=== PATIENT | male | born 1970 | race Caucasian/White ===

== ENCOUNTER → 2018-03-18 13:58 | Outpatient (CLI) | payer OTHER, MEDICAID, SELFPAY | PROVIDERS: PCP Family Medicine; Visit Provider Internal Medicine | DX: E11.621 Type 2 diabetes mellitus with foot ulcer (principal); L97.521 Non-pressure chronic ulcer of other part of left foot limited to breakdown of skin; L84 Corns and callosities; M20.12 Hallux valgus (acquired), left foot; M14.671 Charcot's joint, right ankle and foot | CPT/HCPCS: 99212 ==

== ENCOUNTER → 2018-03-29 14:05 | Outpatient (CLI) | payer OTHER, MEDICAID, SELFPAY ==
[2018-03-29 17:13] LABS: Creatinine Urine Random 164.9 mg/dL
[2018-03-29 20:06] LABS: BUN Creatinine Ratio 22.5 (6-22); Blood Urea Nitrogen 36 mg/dL (9-20); Calcium 9.4 mg/dL (8.4-10.2); Carbon Dioxide 25 mmol/L (22-32); Chloride 103 mmol/L (98-107); Glucose 137 mg/dL (70-100); HEMOLYSIS < 15 (0-50); Potassium 4.9 mmol/L (3.4-5.1); Sodium 142 mmol/L (137-145)
[2018-03-29 20:41] LABS: Microalbumi Creatinin Ratio Ur 435.4 ug/mg CR (<30); Microalbumin Urine Random 71.8 mg/dL (0-1.6)
[2018-03-31 13:54] LABS: Parathyroid Hormone Int 90 pg/mL (14-64)
== END ==
PROVIDERS: PCP Family Medicine; Visit Provider Student in an Organized Health Care Education/Training Program
DX: N05.9 Unspecified nephritic syndrome with unspecified morphologic changes (principal); N25.81 Secondary hyperparathyroidism of renal origin; R80.9 Proteinuria, unspecified
CPT/HCPCS: 36415; 80048; 82043; 82570; 83970

== ENCOUNTER 2018-05-23 12:15 | Emergency (ER) | payer OTHER, MEDICAID, SELFPAY ==
[2018-05-23 12:34] VITALS: BP 163/84; PULSE 93; RESP 20; TEMP 36.8; O2SAT 100
--- NOTE | 2018-05-23 12:54 | ED.DENTAL ---
HPI - Dental/Oral <RITCHIE Solitario - Last Filed: 05/23/18 22:26> General Chief complaint: Dental/Oral Stated complaint: EAR PRESSURE IN RIGHT EAR Time Seen by Provider: 05/23/18 12:57 Source: patient Mode of arrival: ambulatory Limitations: no limitations History of Present Illness HPI Narrative: 47-year-old male here for complaint of having a sore throat and pressure to his right ear since yesterday. He denies any fevers or chills. He does state that he had some sinus congestion yesterday. Positive p.o. intake. He does report that he has tympanic tubes he denies any drainage from the right ear. He states he had some drainage from the left ear few days ago but he went swimming and he thinks it was water. He denies any other complaints or concerns at this time. Related Data Previous Rx's Medication Instructions Recorded [place] [facility] SEE INSTRUCTIONS #100 02/05/17 hydrochlorothiazide 12.5 mg OR Q DAY #30 tab 08/21/17 Glucose: Home Monitor / TID #1 09/03/17 Glucose: Test Strips 0 str TID #100 str 09/03/17 Lancets 0 dev TID #100 09/03/17 hydroxyzine HCl 50 mg PO Q6HP PRN #40 tab 01/26/18 Diabetic Shoes / #1 01/27/18 carvedilol 3.125 mg tablet 3.125 mg PO BID #60 tab 03/05/18 insulin glargine [Lantus Solostar 45 u SQ Q DAY #7 pac 03/11/18 U-100 Insulin] insulin lispro (U-100) 100 unit/mL 12 unit SUBCUT AC #1 box 05/06/18 subcutaneous pen Allergies Allergy/AdvReac Type Severity Reaction Status Date / Time vancomycin [VANCOMYCIN] Allergy Severe MARY JO Unverified 02/03/18 12:16 SYNDROME ibuprofen AdvReac Verified 05/23/18 12:38 Review of Systems <RITCHIE Solitario - Last Filed: 05/23/18 22:26> Constitutional Denies chills, Denies fever(s), Denies lethargy and Denies weakness Eyes Denies change in vision, Denies eye discharge, Denies irritation and Denies loss of vision ENT Ears, Nose, Mouth, and Throat: Reports otalgia and Reports sore throat Cardiovascular Denies chest pain, Denies irregular heart rhythm, Denies lightheadedness, Denies palpitations, Denies dyspnea, Denies dyspnea on exertion and Denies orthopnea Respiratory Denies cough, Denies dyspnea, Denies dyspnea on exertion and Denies wheezing Gastrointestinal Gastrointestinal: Denies abdominal pain, Denies change in bowel habits, Denies diarrhea, Denies nausea and Denies vomiting Genitourinary Denies hematuria, Denies flank pain, Denies urinary incontinence and Denies urinary urgency Musculoskeletal Denies back pain, Denies muscle weakness, Denies numbness and Denies tingling Integumentary/Breasts Denies pruritus, Denies erythema, Denies rash and Denies wounds Neurologic Denies confusion, Denies loss of vision, Denies numbness, Denies tingling and Denies weakness Psychiatric Denies anxiety, Denies confusion, Denies depression, Denies homicidal ideation and Denies suicidal ideation Endocrine Denies palpitations Hematologic/Lymphatic Denies easy bruising Allergic/Immunologic Denies wheezing Exam <RITCHIE Solitario - Last Filed: 05/23/18 22:26> Initial Vital Signs Initial Vital Signs: Vital Signs Temperature 98.3 F 05/23/18 12:34 Pulse Rate 93 H 05/23/18 12:34 Respiratory Rate 20 05/23/18 12:34 Blood Pressure 163/84 H 05/23/18 12:34 Pulse Oximetry 100 05/23/18 12:34 Const General: cooperative and well developed Nutritional Appearance: well nourished Orientation: alert, awake, oriented x3 and not confused [facility] Head: normocephalic and atraumatic Ears: external ears normal, TM's normal bilaterally and other (Tympanic tubes in place bilaterally) Nose: external nose normal and No nasal discharge Face and sinus: sinuses nontender, face symmetric, no sinus tenderness and No dry mucous membranes Mouth: oral mucosae normal and moist mucous membranes Teeth and gingiva: dentition normal Throat: tonsils normal and uvula midline Eyes Conjunctivae: conjunctivae normal Sclera: sclerae normal Pupils: PERRL EOM: EOM intact bilaterally Neck Neck: normal visual inspection, trachea midline, No lymphadenopathy, No midline deformity and No JVD Lymphatic: No lymphedema Resp Effort & Inspection: normal respiratory effort, able to speak in complete sentences, no respiratory distress and no use of accessory muscles Auscultation: clear to auscultation bilaterally, no rales, no rhonchi and no wheezes Cardio Rate: regular rate Rhythm: regular rhythm Heart Sounds: no click, no gallops, no murmurs and no rubs Pulses: normal peripheral pulses Skin General: no rashes or lesions noted, No jaundice and No petechiae Neuro General: alert, oriented x3, gait normal and no focal motor deficits Speech: speech normal <Ricky Hatch DO - Last Filed: 05/24/18 07:11> Initial Vital Signs Initial Vital Signs: Vital Signs Temperature 98.3 F 05/23/18 12:34 Pulse Rate 93 H 05/23/18 12:34 Respiratory Rate 20 05/23/18 12:34 Blood Pressure 163/84 H 05/23/18 12:34 Pulse Oximetry 100 05/23/18 12:34 Course <RITCHIE Solitario - Last Filed: 05/23/18 22:26> Orders Ordered: ED Orders 05/23/18 13:14 Strep Grp A by PCR Rapid Stat Vital Signs - 8 hr 05/23/18 12:34 Temperature 98.3 F Pulse Rate 93 H Respiratory Rate 20 Blood Pressure 163/84 H Pulse Oximetry 100 <DO Melody Vickers Last Filed: 05/24/18 07:11> Orders Ordered: ED Orders 05/23/18 13:14 Strep Grp A by PCR Rapid Stat Vital Signs - 8 hr 05/23/18 12:34 Temperature 98.3 F Pulse Rate 93 H Respiratory Rate 20 Blood Pressure 163/84 H Pulse Oximetry 100 MDM - Dental/Oral <RITCHIE Solitario - Last Filed: 05/23/18 22:26> [facility] Narrative Medical decision making narrative: Bilateral ear exam was unremarkable. Rapid strep test was obtained and was negative. Signs and symptoms presents as a viral illness. Pnsf-okt-[id number] Tylenol or Motrin as needed for any discomfort. Plenty of fluids and rest. Follow up with primary care provider later this week. For any worsening symptoms return to the emergency room. Discharge Plan Departure Patient Disposition: Home, Self-Care Clinical Impression: Acute viral pharyngitis Discharge Date/Time: 05/23/18 14:07 Interventions: ED Discharge Assessment Last Done: 05/23/18 14:07 Instructions: DI for Viral Pharyngitis Activity Restrictions/Additional Instructions: Bilateral ear exam was unremarkable. Rapid strep test was obtained and was negative. Signs and symptoms presents as a viral illness. Cshp-cyt-neolyru Tylenol or Motrin as needed for any discomfort. Plenty of fluids and rest. Follow up with primary care provider later this week. For any worsening symptoms return to the emergency room. Prescriptions: No Action [place] SEE INSTRUCTIONS Qty: 100 RF: 0 hydrochlorothiazide 12.5 MG tablet 12.5 mg OR Q DAY Qty: 30 RF: 5 Glucose: Home Monitor TID Qty: 1 RF: 3 Lancets TID Qty: 100 RF: 8 Glucose: Test Strips TID Qty: 100 RF: 6 hydroxyzine HCl 50 MG tablet 50 mg PO Q6HP PRNQty: 40 RF: 1 Diabetic Shoes Qty: 1 RF: 0 carvedilol [Coreg] 3.125 mg tablet 3.125 mg PO BID Qty: 60 RF: 5 insulin glargine [Lantus Solostar U-100 Insulin] 100 unit/mL (3 mL) insulin pen 45 u SQ Q DAY Qty: 7 RF: 0 insulin lispro [Humalog KwikPen Insulin] 100 unit/mL insulin pen 12 unit SUBCUT AC Qty: 1 RF: 2 Referrals: Markel Yoder MD [Primary Care Provider] - <Ricky Hatch DO - Last Filed: 05/24/18 07:11> Cosign ED Attending Gerardoature Attestation: I was available for consultation during this patient's emergency department encounter
== END 2018-05-23 14:07 | disposition home or self-care (01) ==
PROVIDERS: Emergency Provider Nurse Practitioner Family; PCP Family Medicine
DX: J02.8 Acute pharyngitis due to other specified organisms (principal)
CPT/HCPCS: 87880; 99282; 99283

== ENCOUNTER 2018-10-14 17:29 | Emergency (ER) | payer SELFPAY ==
[2018-10-14 17:34] VITALS: BP 134/78; PULSE 110; RESP 16; TEMP 37.2; O2SAT 100; BMI 36.3
--- NOTE | 2018-10-14 18:15 | ED.RECABL ---
HPI - Recheck/Abnormal Lab/Rx General Chief Complaint: Recheck/Abnormal Lab/Rx Stated Complaint: STATES SENT FOR ANTIBIOTICS Time Seen by Provider: 10/14/18 18:15 Source: patient Mode of arrival: ambulatory Limitations: no limitations History of Present Illness HPI narrative: Patient is a 48-year-old male who diabetic. Has had issues with ulcers in his right foot. Has have a history of osteomyelitis. Has had foot fusion in the past. He states that he does have feeling in his foot. He states that over the past several days he has noticed some black areas on the lateral aspect of his right foot. He states that there is always redness in this area and that has not changed. He has not noticed any drainage. Does report very minimal swelling over the area. No fevers. He contacted his primary doctor today who instructed him to come to the emergency department for antibiotics. Related Data Previous Rx's Medication Instructions Recorded [place] [facility] SEE INSTRUCTIONS #100 02/05/17 Glucose: Home Monitor / TID #1 09/03/17 Glucose: Test Strips 0 str TID #100 str 09/03/17 Lancets 0 dev TID #100 09/03/17 hydroxyzine HCl 50 mg PO Q6HP PRN #40 tab 01/26/18 Diabetic Shoes / #1 01/27/18 insulin glargine [Lantus Solostar 45 u SQ Q DAY #7 pac 03/11/18 U-100 Insulin] hydrochlorothiazide 12.5 mg tablet 12.5 mg PO Q DAY #30 tab 08/09/18 insulin lispro (U-100) 100 unit/mL 12 unit SUBCUT AC #1 box 08/16/18 subcutaneous pen carvedilol 3.125 mg tablet 3.125 mg PO BID #60 tab 09/13/18 sulfamethoxazole-trimethoprim 1 tab PO BID 14 Days #28 tab 10/14/18 [Bactrim DS] Allergies Allergy/AdvReac Type Severity Reaction Status Date / Time vancomycin [VANCOMYCIN] Allergy Severe MARY JO Verified 10/14/18 17:34 SYNDROME ibuprofen AdvReac Verified 10/14/18 17:34 Review of Systems Constitutional Denies fatigue and Denies fever(s) Cardiovascular Denies chest pain and Denies dyspnea Respiratory Denies dyspnea Gastrointestinal Gastrointestinal: Denies abdominal pain Musculoskeletal Denies myalgias and Denies arthralgias Integumentary/Breasts Comments: Black areas over the outside of the right foot Neurologic Comments: No changes in sensation to the right foot Endocrine Denies fatigue Hematologic/Lymphatic Denies easy bleeding and Denies easy bruising PFSH Medical History Diabetes (Acute) Surgical History H/O foot surgery (Acute) Social History Smoking Status: Never smoker Exam Initial Vital Signs Initial Vital Signs: Vital Signs Temperature 99.0 F 10/14/18 17:34 Pulse Rate 110 H 10/14/18 17:34 Respiratory Rate 16 10/14/18 17:34 Blood Pressure 134/78 10/14/18 17:34 Pulse Oximetry 100 10/14/18 17:34 Const General: cooperative, healthy appearing, comfortable, well developed, well groomed and No acute distress Orientation: alert, awake and oriented x3 HENMT Head: normal to inspection and normocephalic Resp Effort & Inspection: normal respiratory effort Cardio Pulses: dorsalis pedis present on the right Skin Other: Patient with a 2 cm area of black skin on the lateral aspect of the right foot along the 5th metatarsal. No drainage. No blisters. He does have an area of redness around this which the patient states is not new. Neuro Sensory Exam: no sensory deficits noted Extrem Other: Extremity exam unremarkable except for the skin changes of the right foot Psych Appearance: grossly normal and well kempt Course Orders Ordered: Discontinued Medications Trimethoprim/Sulfamethoxazole (Bactrim Ds) 1 tab PO NOW ONE Stop: 10/14/18 18:45 Last Admin: 10/14/18 19:12 Dose: 1 tab Vital Signs - 8 hr 10/14/18 17:34 10/14/18 19:21 Temperature 99.0 F Pulse Rate 110 H 97 H Respiratory Rate 16 16 Blood Pressure 134/78 141/85 H Pulse Oximetry 100 99 MDM - Recheck/Abnormal Lab/Rx Lab Data Point of Care Testing Glucose POC 85 MDM Narrative Medical decision making narrative: Patient is tachycardic but not septic appearing. He does have some black areas on the lateral aspect of his right foot but no drainage. The redness does not appear to be new. After discussion with the patient we will place him on Bactrim. He states that he has taken this medication in the past and it seem to have helped his other infections. A review of his studies here did not show any prior wound cultures. He states that his last infection was greater than 1 year ago. He was given a 1st dose here in the emergency department and then sent home with a prescription for this medicine. He is going to contact his primary care doctor tomorrow to see if he needs to follow up with him or with wound care. He was given return precautions. He expressed understanding and agreement with plan. Discharge Plan Departure Patient Disposition: Home Clinical Impression: Cellulitis Discharge Date/Time: 10/14/18 19:22 Interventions: ED Discharge Assessment Last Done: 10/14/18 19:21 Instructions: DI for Cellulitis -- Adult Activity Restrictions/Additional Instructions: I recommend that you call Dr. conley tomorrow for a follow-up. You were given your 1st dose of antibiotics here in the emergency department. Fill the prescription and start taking them as directed. Return to the emergency department for any new or worsening symptoms Prescriptions: New sulfamethoxazole-trimethoprim [Bactrim DS] 800-160 mg tablet 1 tab PO BID 14 Days Qty: 28 RF: 0 No Action [place] SEE INSTRUCTIONS Qty: 100 RF: 0 Glucose: Home Monitor TID Qty: 1 RF: 3 Lancets TID Qty: 100 RF: 8 Glucose: Test Strips TID Qty: 100 RF: 6 hydroxyzine HCl 50 MG tablet 50 mg PO Q6HP PRNQty: 40 RF: 1 Diabetic Shoes Qty: 1 RF: 0 insulin glargine [Lantus Solostar U-100 Insulin] 100 unit/mL (3 mL) insulin pen 45 u SQ Q DAY Qty: 7 RF: 0 hydrochlorothiazide 12.5 mg tablet 12.5 mg PO Q DAY Qty: 30 RF: 5 insulin lispro [Humalog KwikPen Insulin] 100 unit/mL insulin pen 12 unit SUBCUT AC Qty: 1 RF: 2 carvedilol [Coreg] 3.125 mg tablet 3.125 mg PO BID Qty: 60 RF: 5
[2018-10-14] MEDS: TRIMETH/SULFA 160/800 (DS) TABLET 1 TAB PO (19:12)
[2018-10-14 19:21] VITALS: BP 141/85; PULSE 97; RESP 16; O2SAT 99
== END 2018-10-14 19:22 | disposition home or self-care (01) ==
PROVIDERS: Emergency Provider Emergency Medicine; Family Provider Internal Medicine; PCP Internal Medicine
DX: L03.115 Cellulitis of right lower limb (principal)
CPT/HCPCS: 82962; 99282; 99283

== ENCOUNTER → 2018-11-08 13:24 | Outpatient (CLI) | payer OTHER, SELFPAY | PROVIDERS: Family Provider Internal Medicine; PCP Student in an Organized Health Care Education/Training Program; Visit Provider Family Medicine | DX: E11.621 Type 2 diabetes mellitus with foot ulcer (principal); E11.40 Type 2 diabetes mellitus with diabetic neuropathy, unspecified; L97.511 Non-pressure chronic ulcer of other part of right foot limited to breakdown of skin | CPT/HCPCS: 97597; 99213 ==

== ENCOUNTER → 2018-11-08 14:29 | Outpatient (CLI) | payer OTHER, SELFPAY ==
--- NOTE | 2018-11-08 | DI.RAD.S_ITS ---
PROCEDURE: XR FOOT RT MIN 3V INDICATIONS: LATERAL RIGHT FOOT EVAL FOR OSTEO TECHNIQUE: 3 views of the foot were acquired. COMPARISON: [facility], MR, FOOT W&WO CONTRAST, 05/29/2017, 15:32. [facility], CR, FOOT 3V RIGHT, 01/20/2017, 10:32. [facility], CR, FOOT 3V RIGHT, 01/02/2017, 15:15. FINDINGS: Bones: No fractures or dislocations. There is a finding of a mixed osteolytic and osteosclerotic change at the base of the third, fourth and fifth metatarsal bones and extending into the adjacent tarsal bones/cuboid. Stable appearing postsurgical changes over the calcaneus and base of the first metatarsal bone. Soft tissues: No tibiotalar joint effusion. Achilles tendon appears normal. IMPRESSION: Postsurgical changes posteriorly and medially. What appears to be active osteomyelitis can be seen laterally involving the proximal aspect of the third fourth and fifth metatarsal bones and the adjacent tarsal structures and cuboid. Dictated by: Preston Aguilar M.D. on 11/08/2018 at 15:24 Approved by: Preston Aguilar M.D. on 11/08/2018 at 15:26
[2018-11-08 15:05] LABS: Add Manual Diff / Slide Review NO; Basophils Absolute Auto 0 /uL (0-100); Basophils Percent Auto 0.9 % (0-2); Eosinophils Absolute Auto 300 /uL (0-450); Eosinophils Percent Auto 4.9 % (2-4); Hematocrit 37.5 % (41-53); Hemoglobin 12.7 g/dL (13.5-17.5); Lymphocytes Absolute Auto 1500 /uL (1100-4500); Lymphocytes Percent Auto 27.9 % (25-40); Mean Corpuscular HGB Conc 33.9 % (30-36); Mean Corpuscular Hemoglobin 29.5 PG (26-34); Mean Corpuscular Volume 86.9 fL (80-100); Monocytes Absolute Auto 400 /uL (0-900); Monocytes Percent Auto 6.5 % (3-14); Neutrophils Absolute Auto 3300 /uL (1500-7000); Neutrophils Percent Auto 59.8 % (50-75); Platelet Count 184 X10^3/uL (150-400); Red Blood Cell Count 4.31 X10^6/uL (4.5-5.9); Red Cell Distribution Width 12.9 % (11.6-14.8); White Blood Cell Count 5.4 X10^3/uL (4.5-11.0)
[2018-11-08 15:25] LABS: Hemoglobin A1C% w Est Avg Glu 11.9 % (4.0-6.0)
[2018-11-08 15:41] LABS: Erythrocyte Sedimentation Rate 47 MM/HR (0-15)
[2018-11-08 15:52] LABS: Alanine Aminotransferase 43 IU/L (21-72); Albumin 4.2 g/dL (3.5-5.0); Albumin Globulin Ratio 1.4 (1.0-2.8); Alkaline Phosphatase 85 U/L (38-126); Aspartate Aminotransferase 28 IU/L (17-59); BUN Creatinine Ratio 22.7 (6-22); Bilirubin Total 0.5 mg/dL (0.2-1.3); Blood Urea Nitrogen 34 mg/dL (9-20); Calcium 9.5 mg/dL (8.4-10.2); Carbon Dioxide 27 mmol/L (22-32); Chloride 104 mmol/L (98-107); Estimated Glomerular Filt Rate 50.4 mL/min (>60); Globulin 2.9 g/dL (1.7-4.1); Glucose 114 mg/dL (70-100); HEMOLYSIS < 15 (0-50); Potassium 4.9 mmol/L (3.4-5.1); Sodium 141 mmol/L (137-145); Total Protein 7.1 g/dL (6.3-8.2)
== END ==
PROVIDERS: Family Provider Internal Medicine; PCP Student in an Organized Health Care Education/Training Program; Visit Provider Podiatrist Primary Podiatric Medicine
DX: E11.621 Type 2 diabetes mellitus with foot ulcer (principal); L97.519 Non-pressure chronic ulcer of other part of right foot with unspecified severity; E11.69 Type 2 diabetes mellitus with other specified complication; M86.671 Other chronic osteomyelitis, right ankle and foot
CPT/HCPCS: 36415; 73630; 80053; 83036; 85025; 85651; 86140

== ENCOUNTER → 2018-11-15 13:25 | Outpatient (CLI) | payer OTHER, SELFPAY | PROVIDERS: Family Provider Internal Medicine; PCP Student in an Organized Health Care Education/Training Program; Visit Provider Podiatrist Primary Podiatric Medicine | DX: E11.621 Type 2 diabetes mellitus with foot ulcer (principal); L97.511 Non-pressure chronic ulcer of other part of right foot limited to breakdown of skin | CPT/HCPCS: 97597 ==

== ENCOUNTER → 2018-11-30 09:25 | Outpatient (CLI) | payer OTHER, SELFPAY | LOC: WC 09:26 | PROVIDERS: Family Provider Internal Medicine; PCP Student in an Organized Health Care Education/Training Program; Visit Provider Family Medicine | DX: E11.621 Type 2 diabetes mellitus with foot ulcer (principal); L97.511 Non-pressure chronic ulcer of other part of right foot limited to breakdown of skin; L84 Corns and callosities | CPT/HCPCS: 11042; 87070; 87077; 87147; 87186; 87205 ==

== ENCOUNTER → 2018-12-10 13:28 | Outpatient (CLI) | payer OTHER, SELFPAY | LOC: WC 13:30 | PROVIDERS: Family Provider Internal Medicine; PCP Student in an Organized Health Care Education/Training Program; Visit Provider Family Medicine | DX: E11.621 Type 2 diabetes mellitus with foot ulcer (principal); L97.512 Non-pressure chronic ulcer of other part of right foot with fat layer exposed; L08.9 Local infection of the skin and subcutaneous tissue, unspecified | CPT/HCPCS: 11042; 99213 ==

== ENCOUNTER → 2018-12-24 08:30 | Outpatient (CLI) | payer OTHER, SELFPAY | PROVIDERS: Family Provider Internal Medicine; PCP Student in an Organized Health Care Education/Training Program; Visit Provider Family Medicine | DX: E11.621 Type 2 diabetes mellitus with foot ulcer (principal); L97.511 Non-pressure chronic ulcer of other part of right foot limited to breakdown of skin | CPT/HCPCS: 11042 ==

== ENCOUNTER → 2020-02-08 09:58 | Outpatient (CLI) | payer OTHER, SELFPAY ==
[2020-02-09] LABS: COVID19 Sendout Not Detected (Not Detect)
== END ==
PROVIDERS: Family Provider Internal Medicine; PCP Internal Medicine; Visit Provider Registered Nurse
DX: R68.89 Other general symptoms and signs (principal)
CPT/HCPCS: 87635

== ENCOUNTER → 2020-03-07 16:41 | Outpatient (ROUT) | payer OTHER, SELFPAY | PROVIDERS: Family Provider Internal Medicine; PCP Internal Medicine; Visit Provider Internal Medicine | DX: L03.115 Cellulitis of right lower limb (principal) | CPT/HCPCS: 87070; 87075; 87077; 87185; 87186; 87205 ==

== ENCOUNTER → 2020-04-12 10:16 | Outpatient (CLI) | payer OTHER, SELFPAY ==
[2020-04-12 12:00] LABS: Alanine Aminotransferase 37 IU/L (<50); Albumin 4.2 g/dL (3.5-5.0); Albumin Globulin Ratio 1.4 (1.0-2.8); Alkaline Phosphatase 100 U/L (38-126); Aspartate Aminotransferase 34 IU/L (17-59); BUN Creatinine Ratio 21.8 (6-22); Bilirubin Total 0.6 mg/dL (0.2-1.3); Blood Urea Nitrogen 34 mg/dL (9-20); Calcium 9.5 mg/dL (8.4-10.2); Carbon Dioxide 26 mmol/L (22-32); Chloride 107 mmol/L (98-107); Cholesterol 214 mg/dL (140-199); Estimated Glomerular Filt Rate 47.9 mL/min (>60); Globulin 3.1 g/dL (1.7-4.1); Glucose 94 mg/dL (70-100); HDL Cholesterol 35 mg/dL (40-60); HEMOLYSIS < 15 (0-50); LDL Cholesterol Calculated 145 mg/dL (<100); Potassium 3.9 mmol/L (3.4-5.1); Sodium 141 mmol/L (137-145); Total Protein 7.3 g/dL (6.3-8.2); Triglycerides 169 mg/dL (35-150)
== END ==
PROVIDERS: Family Provider Internal Medicine; PCP Internal Medicine; Referring Provider Internal Medicine; Visit Provider Internal Medicine
DX: E11.8 Type 2 diabetes mellitus with unspecified complications (principal)
CPT/HCPCS: 36415; 80053; 80061; 83036

== ENCOUNTER → 2020-06-12 08:47 | Outpatient (CLI) | payer OTHER, SELFPAY | PROVIDERS: Family Provider Internal Medicine; PCP Internal Medicine; Referring Provider Internal Medicine; Visit Provider Family Medicine | DX: E11.621 Type 2 diabetes mellitus with foot ulcer (principal); L97.511 Non-pressure chronic ulcer of other part of right foot limited to breakdown of skin; A52.16 Charcot's arthropathy (tabetic); N18.3 Chronic kidney disease, stage 3 (moderate) | CPT/HCPCS: 11042; 99213; 99214 ==

== ENCOUNTER → 2020-06-21 11:59 | Outpatient (CLI) | payer OTHER, SELFPAY | LOC: WC 12:00 | PROVIDERS: Family Provider Internal Medicine; PCP Internal Medicine; Referring Provider Internal Medicine; Visit Provider Family Medicine | DX: E11.621 Type 2 diabetes mellitus with foot ulcer (principal); L97.511 Non-pressure chronic ulcer of other part of right foot limited to breakdown of skin; A52.16 Charcot's arthropathy (tabetic); N18.3 Chronic kidney disease, stage 3 (moderate) | CPT/HCPCS: 11042 ==

== ENCOUNTER → 2020-06-28 09:38 | Outpatient (CLI) | payer OTHER, SELFPAY ==
[2020-06-28 12:52] LABS: Add Manual Diff / Slide Review NO; Basophils Absolute Auto 100 /uL (0-100); Basophils Percent Auto 0.6 % (0-2); Eosinophils Absolute Auto 100 /uL (0-450); Eosinophils Percent Auto 1.3 % (2-4); Hematocrit 39.7 % (41-53); Hemoglobin 13.3 g/dL (13.5-17.5); Lymphocytes Absolute Auto 1100 /uL (1100-4500); Lymphocytes Percent Auto 12.6 % (25-40); Mean Corpuscular HGB Conc 33.6 % (30-36); Mean Corpuscular Volume 86.2 fL (80-100); Monocytes Absolute Auto 500 /uL (0-900); Monocytes Percent Auto 5.6 % (3-14); Neutrophils Absolute Auto 6900 /uL (1500-7000); Neutrophils Percent Auto 79.9 % (50-75); Platelet Count 204 X10^3/uL (150-400); Red Blood Cell Count 4.61 X10^6/uL (4.5-5.9); Red Cell Distribution Width 13.3 % (11.6-14.8); White Blood Cell Count 8.6 X10^3/uL (4.5-11.0)
[2020-06-28 13:03] LABS: Hemoglobin A1C% w Est Avg Glu 12.5 % (4.0-6.0)
[2020-06-28 13:36] LABS: Alanine Aminotransferase 22 IU/L (<50); Albumin 3.8 g/dL (3.5-5.0); Albumin Globulin Ratio 1.3 (1.0-2.8); Alkaline Phosphatase 98 U/L (38-126); Aspartate Aminotransferase 43 IU/L (17-59); BUN Creatinine Ratio 20.5 (6-22); Blood Urea Nitrogen 33 mg/dL (9-20); Calcium 8.8 mg/dL (8.4-10.2); Carbon Dioxide 24 mmol/L (22-32); Chloride 96 mmol/L (98-107); Estimated Glomerular Filt Rate 46.2 mL/min (>60); Potassium 5.5 mmol/L (3.4-5.1); Sodium 131 mmol/L (137-145); Total Protein 6.8 g/dL (6.3-8.2)
[2020-06-28 13:41] LABS: Prealbumin 17.3 mg/dL (17.6-36.0)
[2020-06-28 13:46] LABS: Erythrocyte Sedimentation Rate 57 MM/HR (0-15); HEMOLYSIS 146 (0-50)
[2020-06-28 13:51] LABS: C-Reactive Protein Quant 18.1 mg/dL (<1.0)
[2020-06-28 14:22] LABS: Glucose 627 mg/dL (70-100)
== END ==
PROVIDERS: Family Provider Internal Medicine; PCP Internal Medicine; Referring Provider Family Medicine; Visit Provider Family Medicine
DX: E11.621 Type 2 diabetes mellitus with foot ulcer (principal); L97.511 Non-pressure chronic ulcer of other part of right foot limited to breakdown of skin; L08.9 Local infection of the skin and subcutaneous tissue, unspecified
CPT/HCPCS: 36415; 80053; 83036; 84134; 85025; 85651; 86140

== ENCOUNTER → 2020-06-28 11:19 | Outpatient (CLI) | payer OTHER, SELFPAY | PROVIDERS: Family Provider Internal Medicine; PCP Internal Medicine; Referring Provider Internal Medicine; Visit Provider Family Medicine | DX: E11.621 Type 2 diabetes mellitus with foot ulcer (principal); L97.511 Non-pressure chronic ulcer of other part of right foot limited to breakdown of skin; A52.16 Charcot's arthropathy (tabetic); N18.3 Chronic kidney disease, stage 3 (moderate); L08.9 Local infection of the skin and subcutaneous tissue, unspecified | CPT/HCPCS: 36415; 80053; 83036; 84134; 85025; 85651; 86140; 87070; 87075; 87077; 87147; 87186; 87205; 99213; 99214 ==

== ENCOUNTER → 2020-07-11 09:24 | Outpatient (CLI) | payer OTHER, SELFPAY | PROVIDERS: Family Provider Internal Medicine; PCP Internal Medicine; Referring Provider Internal Medicine; Visit Provider Family Medicine | DX: E11.65 Type 2 diabetes mellitus with hyperglycemia (principal); L97.516 Non-pressure chronic ulcer of other part of right foot with bone involvement without evidence of necrosis; A52.16 Charcot's arthropathy (tabetic); N18.3 Chronic kidney disease, stage 3 (moderate); L08.9 Local infection of the skin and subcutaneous tissue, unspecified; Z79.2 Long term (current) use of antibiotics | CPT/HCPCS: 36415; 80048; 85025; 86140; 99213; 99214 ==

== ENCOUNTER → 2020-07-11 10:35 | Outpatient (CLI) | payer OTHER, SELFPAY ==
[2020-07-11 11:34] LABS: Add Manual Diff / Slide Review NO; Basophils Absolute Auto 0 /uL (0-100); Basophils Percent Auto 0.4 % (0-2); Eosinophils Absolute Auto 200 /uL (0-450); Eosinophils Percent Auto 2.8 % (2-4); Hematocrit 38.4 % (41-53); Hemoglobin 12.6 g/dL (13.5-17.5); Lymphocytes Absolute Auto 1700 /uL (1100-4500); Lymphocytes Percent Auto 24.6 % (25-40); Mean Corpuscular HGB Conc 32.9 % (30-36); Mean Corpuscular Hemoglobin 27.9 PG (26-34); Mean Corpuscular Volume 84.7 fL (80-100); Monocytes Absolute Auto 400 /uL (0-900); Monocytes Percent Auto 5.3 % (3-14); Neutrophils Absolute Auto 4600 /uL (1500-7000); Neutrophils Percent Auto 66.9 % (50-75); Platelet Count 242 X10^3/uL (150-400); Red Blood Cell Count 4.53 X10^6/uL (4.5-5.9); Red Cell Distribution Width 13.4 % (11.6-14.8); White Blood Cell Count 6.9 X10^3/uL (4.5-11.0)
[2020-07-11 11:57] LABS: BUN Creatinine Ratio 26.5 (6-22); Blood Urea Nitrogen 39 mg/dL (9-20); C-Reactive Protein Quant 2.3 mg/dL (<1.0); Calcium 9.2 mg/dL (8.4-10.2); Carbon Dioxide 26 mmol/L (22-32); Chloride 107 mmol/L (98-107); Estimated Glomerular Filt Rate 51.3 mL/min (>60); Glucose 128 mg/dL (70-100); HEMOLYSIS < 15 (0-50); Sodium 141 mmol/L (137-145)
== END ==
PROVIDERS: Family Provider Internal Medicine; Referring Provider Family Medicine; Visit Provider Family Medicine
DX: L08.9 Local infection of the skin and subcutaneous tissue, unspecified (principal)
CPT/HCPCS: 36415; 80048; 85025; 86140

== ENCOUNTER → 2020-07-18 09:06 | Outpatient (CLI) | payer OTHER, SELFPAY | PROVIDERS: Family Provider Internal Medicine; Referring Provider Internal Medicine; Visit Provider Family Medicine | DX: E11.65 Type 2 diabetes mellitus with hyperglycemia (principal); L97.516 Non-pressure chronic ulcer of other part of right foot with bone involvement without evidence of necrosis; A52.16 Charcot's arthropathy (tabetic); N18.3 Chronic kidney disease, stage 3 (moderate); L08.9 Local infection of the skin and subcutaneous tissue, unspecified; Z79.2 Long term (current) use of antibiotics | CPT/HCPCS: 99213 ==

== ENCOUNTER → 2020-07-25 08:05 | Outpatient (CLI) | payer OTHER, SELFPAY ==
--- NOTE | 2020-07-25 | DI.MRI.S_ITS ---
PROCEDURE: MR FOOT RT WO/W CON INDICATIONS: Non-pressure chronic ulcer of other part of right TECHNIQUE: Noncontrast coronal T1 spin echo and STIR, sagittal T1 spin echo with fat saturation and STIR, axial T1 spin echo and T2 fast spin echo with fat saturation. After the administration of contrast, axial/sagittal/coronal T1 spin echo with fat saturation through the right foot . COMPARISON: [facility], MR, FOOT W&WO CONTRAST, 05/29/2017, 15:32. FINDINGS: Image quality: Excellent. Severe diffuse osteoarthritis. No discrete fracture line identified. There is marrow signal change with loss of normal marrow fat signal intensity on T1 weighted pulse sequences involving the base of the 5th metatarsal. Extensive midfoot degenerative spurring. There is mild enhancement and marrow signal changes with additional loss of the normal marrow fat signal intensity seen at the base of the 4th metatarsal and the cuboid image 24/6. Patchy enhancement present in the 5th metatarsal base There is overlying soft tissue swelling and ulceration along the lateral midfoot near the base of the 5th metatarsal. Postsurgical effects seen in the base of the 1st metatarsal IMPRESSION: Marrow signal changes involving the 5th metatarsal base, deep to the soft tissue swelling and ulcerative appearance which is suspicious for osteomyelitis. Additional sub cm areas of marrow signal change and enhancement involving the base of the 4th metatarsal and the cuboid raising possibility of additional small areas of infection. Dictated by: Manuel Ashley M.D. on 07/25/2020 at 9:51 Approved by: Manuel Ashley M.D. on 07/25/2020 at 9:58
== END ==
PROVIDERS: Family Provider Internal Medicine; PCP Internal Medicine; Referring Provider Internal Medicine; Visit Provider Family Medicine
DX: L97.511 Non-pressure chronic ulcer of other part of right foot limited to breakdown of skin (principal); M19.071 Primary osteoarthritis, right ankle and foot
CPT/HCPCS: 73720; A9579

== ENCOUNTER → 2020-07-25 14:15 | Outpatient (CLI) | payer OTHER, SELFPAY | PROVIDERS: Family Provider Internal Medicine; PCP Internal Medicine; Referring Provider Internal Medicine; Visit Provider Family Medicine | DX: E11.621 Type 2 diabetes mellitus with foot ulcer (principal); L97.516 Non-pressure chronic ulcer of other part of right foot with bone involvement without evidence of necrosis; A52.16 Charcot's arthropathy (tabetic); N18.3 Chronic kidney disease, stage 3 (moderate); M86.671 Other chronic osteomyelitis, right ankle and foot; M19.071 Primary osteoarthritis, right ankle and foot; Z79.2 Long term (current) use of antibiotics | CPT/HCPCS: 73720; 99212; 99214; A9579 ==

== ENCOUNTER → 2020-08-21 09:42 | Outpatient (CLI) | payer OTHER, SELFPAY ==
[2020-08-21 10:16] LABS: Add Manual Diff / Slide Review NO; Basophils Absolute Auto 0 /uL (0-100); Basophils Percent Auto 0.6 % (0-2); Eosinophils Absolute Auto 300 /uL (0-450); Eosinophils Percent Auto 3.9 % (2-4); Hematocrit 37.2 % (41-53); Hemoglobin 12.6 g/dL (13.5-17.5); Lymphocytes Absolute Auto 1700 /uL (1100-4500); Lymphocytes Percent Auto 22.3 % (25-40); Mean Corpuscular HGB Conc 33.7 % (30-36); Mean Corpuscular Hemoglobin 28.6 PG (26-34); Mean Corpuscular Volume 84.7 fL (80-100); Monocytes Absolute Auto 500 /uL (0-900); Monocytes Percent Auto 6.8 % (3-14); Neutrophils Absolute Auto 5000 /uL (1500-7000); Neutrophils Percent Auto 66.4 % (50-75); Platelet Count 198 X10^3/uL (150-400); Red Blood Cell Count 4.39 X10^6/uL (4.5-5.9); Red Cell Distribution Width 13.6 % (11.6-14.8); White Blood Cell Count 7.5 X10^3/uL (4.5-11.0)
[2020-08-21 10:39] LABS: Erythrocyte Sedimentation Rate 55 MM/HR (0-15)
[2020-08-21 10:50] LABS: Blood Urea Nitrogen 42 mg/dL (9-20); C-Reactive Protein Quant 4.4 mg/dL (<1.0); Calcium 9.2 mg/dL (8.4-10.2); Carbon Dioxide 26 mmol/L (22-32); Chloride 109 mmol/L (98-107); Estimated Glomerular Filt Rate 43.8 mL/min (>60); Glucose 80 mg/dL (70-100); HEMOLYSIS < 15 (0-50); Potassium 4.6 mmol/L (3.4-5.1); Sodium 140 mmol/L (137-145)
== END ==
LOC: LAB 09:44
PROVIDERS: Family Provider Internal Medicine; PCP Internal Medicine; Referring Provider Family Medicine; Visit Provider Family Medicine
DX: L08.9 Local infection of the skin and subcutaneous tissue, unspecified (principal)
CPT/HCPCS: 36415; 80048; 85025; 85651; 86140

== ENCOUNTER → 2020-08-22 08:54 | Outpatient (CLI) | payer OTHER, SELFPAY | LOC: WC 08:54 | PROVIDERS: Family Provider Internal Medicine; PCP Internal Medicine; Referring Provider Internal Medicine; Visit Provider Family Medicine | DX: E11.621 Type 2 diabetes mellitus with foot ulcer (principal); L97.516 Non-pressure chronic ulcer of other part of right foot with bone involvement without evidence of necrosis; A52.16 Charcot's arthropathy (tabetic); N18.30 Chronic kidney disease, stage 3 unspecified; Z79.2 Long term (current) use of antibiotics; M86.671 Other chronic osteomyelitis, right ankle and foot | CPT/HCPCS: 11042; 87070; 87075; 87077; 87147; 87186; 87205; 99214 ==

== ENCOUNTER 2020-09-14 11:04 | Day surgery (SDC) | payer OTHER, SELFPAY ==
[2020-09-11 14:53] VITALS: BMI 37.8
[2020-09-14] VITALS (9 sets, daily range): BP systolic 101–152; BP diastolic 47–78; PULSE 72–89; RESP 12–29; TEMP 35.8–36.9; O2SAT 92–100; BMI 36.8
--- NOTE | 2020-09-14 | PATH_ITS ---
[facility] Accession Number: [id number] . 01 Material submitted: . PART A: foot - RIGHT FOOT BONE PART B: foot - RIGHT FOOT ULCER . 01 Clinical history: . OPB . 01 Diagnosis: A. Bone, Right Foot, Excision: Osteocartilaginous tissue with interspersed mild marrow fibrosis with focal chronic inflammation. Fibroconnective tissue with fibrosis. See comment. . B. Right Foot, Excision: Cutaneous ulceration with secondary bacterial impetiginization and underlying inflamed granulation tissue and necrosis. Necrosis and inflammatory changes extend to the skin and soft tissue inked margin. No evidence of malignancy in sections examined. MRV 09/24/2020 1425 Local . 01 Comment: A) The findings are not entirely specific. The findings could represent a subtle mild chronic osteomyelitis in the appropriate clinical setting. Definite evidence of acute osteomyelitis is not identified. Clinical and radiographic correlation is recommended. . 01 Electronically signed: . Gerson Flowers MD, Dermatopathologist NPI- [id number] . 01 Gross description: . A. The specimen is received in formalin, labeled right foot bone, and consists of multiple irregular neely fragments of bone and neely-pink soft tissue measuring 3.0 x 2.5 x 1.5 cm in aggregate. The specimen is entirely submitted following decalcification in cassettes A1 and A2. B. The specimen is received in formalin, labeled right foot ulcer, and consists of a 3.5 x 2.5 cm neely-white skin with attached neely-pink soft tissue measuring 4.0 x 2.0 x 2.0 cm. The margin is inked blue. The specimen is serially sectioned to reveal neely-pink to neely-yellow cut surfaces. Core Man sections are submitted in cassettes B1 and B2. ([id number]) /FRR 09/15/2020 1705 Local . 01 Pathologist provided ICD-10: R23.9, E11.621 . 01 CPT . 002192, [id number], [id number] Performed at: [address] [facility] [address], [place], [place] [id number] MD Shahid Nielson MD Phone: [phone]
[2020-09-14] MEDS: LACTATED RINGERS 1,000 ML 42 ML IV (11:38)
--- NOTE | 2020-09-14 12:54 | PM.PREOP ---
Pre-operative Note COVID-19 COVID-19 status: Negative Interval Note History & Physical reviewed/Exam performed by Physician: Yes Changes to H&P: No
--- NOTE | 2020-09-14 13:32 | SUR.OPER ---
Supine on padded OR bed, head on pillow, arms secured on padded arm boards at <90 degrees abduction, legs uncrossed, safety belt at thigh, blanket bump at right hip, tape over blanket over left lower leg, right leg supported on blanket bump and prepped into field.
[2020-09-14] MEDS: CEFAZOLIN VIAL 3 GM in SODIUM CHLORIDE 0.9% 100 ML 200 ML IV (13:38)
[2020-09-14] MEDS: CEFAZOLIN 1 GM VIAL IV (14:00)
--- NOTE | 2020-09-14 14:49 | PM.OP.1 ---
Operative Date/Time/Diagnoses Date of procedure: 09/14/20 Time of procedure: 13:00 Pre-op diagnosis: Diabetic foot ulcer with osteomyelitis, right Uncontrolled diabetes Obesity BMI 36.9 Post-op diagnosis: same Procedure & Clinicians Procedure: Deep bone biopsy right foot CPT 02788 Debridement right foot ulceration skin subcutaneous tissue fascia and bone CPT 28095 Insertion of drug delivery device, antibiotic beads CPT code 47130 Application wound VAC CPT code 69878 Same procedure as scheduled: Yes Indications: Patient is a 50-year-old male with a history of uncontrolled type 2 diabetes and a cavovarus foot deformity. He has a history of recurrent lateral border ulcerations of his right foot in a site of previous cavovarus foot reconstruction. Unfortunately had incomplete correction and still weightbear as to his lateral border. Continues to have problems with recurrent ulcerations and osteomyelitis. Each time he offload this use just about a gets a healed when he starts weight-bearing again it recurs. Currently the ulceration is approximately 3 x 4 cm. This had an increase in drainage and redness extending over the plantar surface of his foot along with blister formation over the last few days and has been indicated for a formal debridement. He is also being seen with [facility] and was scheduled regional [facility] for coordination of care. Since his hemoglobin A1c is still and controlled we discussed a staged procedure with the repeat debridement arrangement for appropriate IV antibiotics and offloading. Once his hemoglobin A1c is appropriate would do internal fixation with a triple arthrodesis to bring him out of varus. Also discussed options to go to [place] for consideration of external frame procedures. Patient would like to continue with care locally therefore will continue with a staged fashion. The risks and benefits of the procedure have been discussed with the patient even opportunity to ask questions. The risks of surgery include but are not limited to infection, need for additional procedures, malunion, nonunion, persistence of pain, damage to nerves and blood vessels, posttraumatic arthritis, amputation, DVT, PE, cardiopulmonary complications and . The patient expressed a thorough understanding of the risks and benefits of surgery and has elected to proceed. Consent was signed in the office. Surgeon: Zenobia Hines Click Yes if Unassisted: Yes Anesthesia Type: General Operative Notes Findings: Lateral foot ulceration soft underlying bone at the proximal 5th metatarsal. Bony prominence and ulcer were excised. Deep bone cultures were sent. Plantar exploration was undertaken and no abscess was found. Patient does seem to be developing a ulcer plantar in the midfoot and no associated abscess was noted. The wound was thoroughly debrided and after bone excision the edges were closed. After final closure of the in the central ulceration was reduced to approximately 1 by 1.5 x 1 cm and the wound VACwas placed in this. Additional VAC sponge was used as an incisional VAC over the top. Closure Type: not applicable (Edges of the wound were primarily closed and the central a non closable portion a wound VAC was placed) Specimen(s): other (Bone and ulcer sent for pathology and culture) Estimated Blood Loss (mL): 15 Blood products transfused: none Tourniquet time (min): 40 Procedure in detail: Patient was seen in the preoperative area site of surgery was marked informed consent confirmed. Final questions were answered. The patient was brought back to the operating room and placed supine on the operative table. General anesthesia was administered. All bony prominences well padded. Well-padded thigh tourniquet was placed. An SCD was on the contralateral lower extremity. The patient's right lower extremities prepped and draped in the standard sterile fashion. Betadine was placed on the open wound and chlorhexidine elsewhere. A formal time-out procedure was performed confirming the patient's side and site of surgery and presence of informed consent. Antibiotics were held for intraoperative cultures. [place] exsanguination was utilized on the right lower extremity the tourniquet was elevated to 250 mm of mercury. Attention was turned to the right foot. There is a lateral border ulceration along the chemo varus deformed foot. This was ellipsed to size out. And divided to was sent for culture and pathology. This exposed the deep bony deformity which was soft degenerative proximal 5th metatarsal. The mini C-arm fluoroscopy unit was brought in to macario out the planned resection for the deep bone biopsy. At this was taken at the base of the 5th metatarsal and cuboid and again removed and divided amongst cultures and pathology. Once this was completed remainder of the bone fascia and subcutaneous tissue was debrided thoroughly. Exploration was taken out plantarly along the foot no abscess cavities were found. Does appear to be developing a history aviles at the plantar midfoot but no abscess cavity was found associated with this. She flaps were mobilized and it was discovered that the wound would be nearly closed full except for the most central portion which would be too taut for primary closure. At this point IV antibiotics were administered. And the wound was irrigated with of 3 L of saline using the pulsatile lavage. Following this the gloves were changed and clean sheet placed. The Stimulan beads with 500 mg of Ancef were mixed in the standard sterile fashion. 3 mm beads were created. Once these were hard they were placed into the wound deep. Then the edges of the wound were closed over the beads with 2 0 PDS followed by 2 0 nylon suture. This closed the whole wound except for the most central portion which measured approximately 1 x 1.5 x 1 cm deep. In the central area a wound VAC sponge was placed. Additional Adaptic was placed over the incision line and then wound VAC sponge was placed over this as well as an incisional VAC. the edges of the incision were protected with wound VAC dressing supplies. Once the VAC was secured good suction was obtained. The tourniquet was released. Dressing was completed with a ABD pad and Kerlix and an Richard wrap. The patient was woken from anesthesia and taken to the recovery room in good condition. There were no immediate complications from this procedure. All counts were correct. Complications: none Post-operative Condition: stable Disposition: PACU Plan for aftercare: Original plans were for admission with PICC line and awaiting for appropriate cultures. But with COVID the patient does not want to be in the hospital as can be appreciated. Fortunately on inspection after debridement today I do not find any areas of new abscess and actually is redness looks improved today after going back on the Augmentin. He has stable vital signs and no signs of sepsis. I do think it is fine for him to go home to day with his home wound VAC. He will see [facility] on Thursday for VAC change. We will be able to get a PICC line for him today so that when his cultures are back in a few weeks and next week we can arrange for appropriate IV antibiotics within [facility]. Until then he will continue to take his oral Augmentin. Patient understands and agrees with the plan. He has full had a wound VAC and PICC lines before and he understands our care. Will be nonweightbearing on the right lower extremity. He will work diligently on his blood glucose control.
--- NOTE | 2020-09-14 15:20 | SUR.PHASEII ---
Report received from Chanda RN [id number].
--- NOTE | 2020-09-14 15:36 | SUR.PHASEII ---
Pt moved to room 5. brought to bedside.
--- NOTE | 2020-09-14 16:55 | DI.RAD.S_ITS ---
PROCEDURE: XR CHEST 1V INDICATIONS: PICC line placement TECHNIQUE: One view of the chest was acquired. COMPARISON: [facility], , CHEST 2 VIEW, 06/29/2017, 15:22. FINDINGS: Surgical changes and devices: None. Lungs and pleura: Lungs are clear. No pleural effusions or pneumothorax. Mediastinum: Mediastinal contours appear normal. Heart size is normal. Bones and chest wall: No suspicious bony lesions. Overlying soft tissues appear unremarkable. IMPRESSION: No acute cardiopulmonary abnormality Dictated by: Holden Ng M.D. on 09/14/2020 at 21:49 Approved by: Holden Ng M.D. on 09/14/2020 at 21:50
--- NOTE | 2020-09-14 17:11 | SUR.PHASEII ---
PICC line being inserted at present by LAVERNE Adamson. Handoff report given to LAVERNE Armas.
--- NOTE | 2020-09-14 17:34 | PC.NURSE ---
Pt discharged from PACU 1524, never admitted to room 212.
--- NOTE | 2020-09-14 17:38 | SUR.PHASEII ---
Pt in phase 2 for extended period of time getting PICC line inserted-
== END 2020-09-14 17:34 | disposition home or self-care (01) ==
LOC: OR 11:05 → AC 11:05
PROVIDERS: Family Provider Internal Medicine; PCP Internal Medicine; Referring Provider Internal Medicine; Visit Provider Orthopaedic Surgery Foot and Ankle Surgery
PROC: (CPT 20240; principal; 2020-09-14 12:15)
DX: E11.621 Type 2 diabetes mellitus with foot ulcer (principal); L97.516 Non-pressure chronic ulcer of other part of right foot with bone involvement without evidence of necrosis; M86.671 Other chronic osteomyelitis, right ankle and foot; Q66.10 Congenital talipes calcaneovarus, unspecified foot; M25.371 Other instability, right ankle; E11.40 Type 2 diabetes mellitus with diabetic neuropathy, unspecified; E66.9 Obesity, unspecified; Z68.37 Body mass index [BMI] 37.0-37.9, adult; E11.65 Type 2 diabetes mellitus with hyperglycemia; Z79.4 Long term (current) use of insulin; Z45.2 Encounter for adjustment and management of vascular access device
CPT/HCPCS: 20240; 97605; 20700; 11044; 36569; 71045; 82962; 87070; 87075; 87077; 87147; 87176; 87186; 87205; J0690; J1100; J2405; J2704; J3010

== ENCOUNTER → 2020-09-17 10:27 | Outpatient (CLI) | payer OTHER, SELFPAY | PROVIDERS: Family Provider Internal Medicine; PCP Internal Medicine; Referring Provider Orthopaedic Surgery Foot and Ankle Surgery; Visit Provider Family Medicine | DX: E11.621 Type 2 diabetes mellitus with foot ulcer (principal); L97.516 Non-pressure chronic ulcer of other part of right foot with bone involvement without evidence of necrosis | CPT/HCPCS: 97605 ==

== ENCOUNTER → 2020-09-19 09:02 | Outpatient (CLI) | payer OTHER, SELFPAY | PROVIDERS: Family Provider Internal Medicine; PCP Internal Medicine; Referring Provider Internal Medicine; Visit Provider Family Medicine | DX: E11.621 Type 2 diabetes mellitus with foot ulcer (principal); L97.516 Non-pressure chronic ulcer of other part of right foot with bone involvement without evidence of necrosis | CPT/HCPCS: 97605 ==

== ENCOUNTER → 2020-09-24 10:48 | Outpatient (CLI) | payer OTHER, SELFPAY | LOC: WC 10:49 | PROVIDERS: Family Provider Internal Medicine; PCP Internal Medicine; Referring Provider Internal Medicine; Visit Provider Family Medicine | DX: E11.621 Type 2 diabetes mellitus with foot ulcer (principal); L97.516 Non-pressure chronic ulcer of other part of right foot with bone involvement without evidence of necrosis; N18.30 Chronic kidney disease, stage 3 unspecified; M86.671 Other chronic osteomyelitis, right ankle and foot; B95.62 Methicillin resistant Staphylococcus aureus infection as the cause of diseases classified elsewhere | CPT/HCPCS: 99212; 99214 ==

== ENCOUNTER → 2020-10-03 09:38 | Outpatient (CLI) | payer OTHER, SELFPAY | PROVIDERS: Family Provider Internal Medicine; PCP Internal Medicine; Referring Provider Internal Medicine; Visit Provider Family Medicine | DX: E11.621 Type 2 diabetes mellitus with foot ulcer (principal); L97.516 Non-pressure chronic ulcer of other part of right foot with bone involvement without evidence of necrosis; M86.671 Other chronic osteomyelitis, right ankle and foot; B95.62 Methicillin resistant Staphylococcus aureus infection as the cause of diseases classified elsewhere; R60.0 Localized edema; E11.40 Type 2 diabetes mellitus with diabetic neuropathy, unspecified | CPT/HCPCS: 11042; 97605; 99214 ==

== ENCOUNTER → 2020-10-08 11:43 | Outpatient (CLI) | payer OTHER, SELFPAY | PROVIDERS: Family Provider Internal Medicine; PCP Internal Medicine; Referring Provider Internal Medicine; Visit Provider Family Medicine | DX: E11.621 Type 2 diabetes mellitus with foot ulcer (principal); L97.516 Non-pressure chronic ulcer of other part of right foot with bone involvement without evidence of necrosis; R60.0 Localized edema; M86.671 Other chronic osteomyelitis, right ankle and foot; Z79.2 Long term (current) use of antibiotics | CPT/HCPCS: 36415; 85025; 86140; 97605 ==

== ENCOUNTER → 2020-10-08 11:57 | Outpatient (CLI) | payer OTHER, SELFPAY ==
[2020-10-08 12:48] LABS: Add Manual Diff / Slide Review NO; Basophils Absolute Auto 0 /uL (0-100); Basophils Percent Auto 0.6 % (0-2); Eosinophils Absolute Auto 300 /uL (0-450); Hematocrit 38.1 % (41-53); Hemoglobin 12.4 g/dL (13.5-17.5); Lymphocytes Absolute Auto 1500 /uL (1100-4500); Lymphocytes Percent Auto 23.5 % (25-40); Mean Corpuscular HGB Conc 32.7 % (30-36); Mean Corpuscular Hemoglobin 27.7 PG (26-34); Mean Corpuscular Volume 84.7 fL (80-100); Monocytes Absolute Auto 400 /uL (0-900); Monocytes Percent Auto 6.4 % (3-14); Neutrophils Absolute Auto 4200 /uL (1500-7000); Neutrophils Percent Auto 65.5 % (50-75); Platelet Count 204 X10^3/uL (150-400); Red Cell Distribution Width 13.6 % (11.6-14.8); White Blood Cell Count 6.5 X10^3/uL (4.5-11.0)
[2020-10-08 13:55] LABS: C-Reactive Protein Quant 1.5 mg/dL (<1.0)
== END ==
PROVIDERS: Family Provider Internal Medicine; PCP Internal Medicine; Referring Provider Family Medicine; Visit Provider Family Medicine
DX: E11.621 Type 2 diabetes mellitus with foot ulcer (principal); L97.516 Non-pressure chronic ulcer of other part of right foot with bone involvement without evidence of necrosis; M86.671 Other chronic osteomyelitis, right ankle and foot; Z79.2 Long term (current) use of antibiotics
CPT/HCPCS: 36415; 85025; 86140

== ENCOUNTER → 2020-10-11 10:13 | Outpatient (CLI) | payer OTHER, SELFPAY | LOC: WC 10:13 | PROVIDERS: Family Provider Internal Medicine; PCP Internal Medicine; Referring Provider Internal Medicine; Visit Provider Family Medicine | DX: E11.621 Type 2 diabetes mellitus with foot ulcer (principal); L97.516 Non-pressure chronic ulcer of other part of right foot with bone involvement without evidence of necrosis; M86.671 Other chronic osteomyelitis, right ankle and foot; B95.62 Methicillin resistant Staphylococcus aureus infection as the cause of diseases classified elsewhere | CPT/HCPCS: 11043; 97605; 99213 ==

== ENCOUNTER → 2020-10-16 11:26 | Outpatient (CLI) | payer OTHER, SELFPAY | PROVIDERS: Family Provider Internal Medicine; PCP Internal Medicine; Referring Provider Internal Medicine; Visit Provider Family Medicine | DX: E11.621 Type 2 diabetes mellitus with foot ulcer (principal); L97.516 Non-pressure chronic ulcer of other part of right foot with bone involvement without evidence of necrosis | CPT/HCPCS: 97605 ==

== ENCOUNTER → 2020-10-30 10:18 | Outpatient (CLI) | payer OTHER, SELFPAY | LOC: WC 10:19 | PROVIDERS: PCP Internal Medicine; Referring Provider Internal Medicine; Visit Provider Family Medicine | DX: E11.621 Type 2 diabetes mellitus with foot ulcer (principal); L97.511 Non-pressure chronic ulcer of other part of right foot limited to breakdown of skin; M86.671 Other chronic osteomyelitis, right ankle and foot; R60.0 Localized edema; Z79.2 Long term (current) use of antibiotics; Z59.8 Other problems related to housing and economic circumstances | CPT/HCPCS: 11042; 97605; 99214 ==

== ENCOUNTER → 2020-11-02 11:23 | Outpatient (CLI) | payer OTHER, SELFPAY | PROVIDERS: PCP Internal Medicine; Referring Provider Internal Medicine; Visit Provider Family Medicine | DX: L97.511 Non-pressure chronic ulcer of other part of right foot limited to breakdown of skin (principal); R60.0 Localized edema | CPT/HCPCS: 97605 ==

== ENCOUNTER → 2020-11-06 09:34 | Outpatient (CLI) | payer OTHER, SELFPAY | LOC: WC 09:34 | PROVIDERS: PCP Internal Medicine; Referring Provider Internal Medicine; Visit Provider Family Medicine | DX: E11.621 Type 2 diabetes mellitus with foot ulcer (principal); L97.511 Non-pressure chronic ulcer of other part of right foot limited to breakdown of skin; M86.671 Other chronic osteomyelitis, right ankle and foot; B95.62 Methicillin resistant Staphylococcus aureus infection as the cause of diseases classified elsewhere; E11.40 Type 2 diabetes mellitus with diabetic neuropathy, unspecified; R60.0 Localized edema; Z79.2 Long term (current) use of antibiotics | CPT/HCPCS: 11042; 97605 ==

== ENCOUNTER → 2020-11-09 14:34 | Outpatient (CLI) | payer OTHER, SELFPAY | PROVIDERS: PCP Internal Medicine; Referring Provider Internal Medicine; Visit Provider Family Medicine | DX: E11.621 Type 2 diabetes mellitus with foot ulcer (principal); L97.511 Non-pressure chronic ulcer of other part of right foot limited to breakdown of skin; R60.0 Localized edema | CPT/HCPCS: 99213 ==

== ENCOUNTER → 2020-11-20 08:46 | Outpatient (CLI) | payer OTHER, SELFPAY | LOC: WC 08:46 | PROVIDERS: PCP Internal Medicine; Referring Provider Internal Medicine; Visit Provider Family Medicine | DX: E11.621 Type 2 diabetes mellitus with foot ulcer (principal); L97.511 Non-pressure chronic ulcer of other part of right foot limited to breakdown of skin; N18.30 Chronic kidney disease, stage 3 unspecified; M86.671 Other chronic osteomyelitis, right ankle and foot; Z79.2 Long term (current) use of antibiotics; R60.0 Localized edema; B95.62 Methicillin resistant Staphylococcus aureus infection as the cause of diseases classified elsewhere; E11.22 Type 2 diabetes mellitus with diabetic chronic kidney disease | CPT/HCPCS: 11042; 99214 ==